=== PATIENT | male | born 1990 | race Caucasian/White ===

== ENCOUNTER 2016-12-15 08:47 | Emergency (ER) | payer OTHER ==
--- NOTE | 2016-12-15 10:37 | UC ---
Skin Complaint HPI - HPI Summary HPI Summary: large mole on his back that has been getting irritated from the harness we wears at work---has been bleeding for the past few days - History of Current Complaint Chief Complaint: [employer] Time Seen by Provider: 12/15/16 10:29 Stated Complaint: SKIN COMPLAINT Hx Obtained From: Patient Onset/Duration: Gradual Onset, Still Present Skin Exposure Onset/Duration: Worse Since: - past few weeks has been bleeding on /off --patient believes hehas had the mole for at least 10-15 years Timing: Constant Onset Severity: Moderate Current Severity: Moderate Pain Intensity: 4 Pain Scale Used: 0-10 Numeric Location: Discrete - mid right side of back Aggravating: Other - his work harness Alleviating: Nothing Associated Signs & Symptoms: Positive: Negative - Allergy/Home Medications Allergies/Adverse Reactions: Allergies Allergy/AdvReac Type Severity Reaction Status Date / Time No Known Allergies Allergy Verified 12/15/16 08:52 Home Medications: Home Medications NK [No Home Medications Reported] 12/15/16 [History Confirmed 12/15/16] Review of Systems Constitutional: Negative Skin: Other - Bleeding mole on back Eyes: Negative ENT: Negative Respiratory: Negative Cardiovascular: Negative Gastrointestinal: Negative Genitourinary: Negative Motor: Negative Neurovascular: Negative Musculoskeletal: Negative Neurological: Negative Psychological: Negative All Other Systems Reviewed And Are Negative: Yes PMH/Surg Hx/FS Hx/Imm Hx Previously Healthy: Yes - Surgical History Surgical History: None - Family History Known Family History: Positive: None Family History: no cardio vascular issues in family lineage - Social History Occupation: Employed Full-time Lives: With Family Alcohol Use: Occasionally Substance Use Type: None Smoking Status (MU): Never Smoked Tobacco Physical Exam Triage Information Reviewed: Yes Appearance: Well-Appearing, No Pain Distress, Well-Nourished Vital Signs: Initial Vital Signs Temp 98.2 F 12/15/16 08:50 Pulse 83 12/15/16 08:50 Resp 16 12/15/16 08:50 BP 155/80 12/15/16 08:50 Pulse Ox 100 12/15/16 08:50 Vital Signs Reviewed: Yes Eye Exam: Normal Eyes: Positive: Conjunctiva Clear ENT Exam: Normal ENT: Positive: Normal ENT inspection, Hearing grossly normal. Negative: Trismus , Muffled/hoarse voice Dental Exam: Normal Neck exam: Normal Neck: Positive: Supple, Nontender Respiratory Exam: Normal Respiratory: Positive: Chest non-tender, No respiratory distress, No accessory muscle use Cardiovascular Exam: Normal Cardiovascular: Positive: RRR, Pulses Normal, Brisk Capillary Refill Musculoskeletal Exam: Normal Musculoskeletal: Positive: Strength Intact, ROM Intact, No Edema Neurological Exam: Normal Neurological: Positive: Alert, Muscle Tone Normal Psychological Exam: Normal Skin Exam: Other Skin: Positive: Other - 6 mm diameter by 6 mm height pyrogenic granuolma vs cutaneous horn Course/Dx - Course Course Of Treatment: follow with dermatology 1010 am tomorrow, follow blood pressure with pcp - Differential Diagnoses - Skin Complaint Differential Diagnoses: Cellulitis, Impetigo - Diagnoses Provider Diagnoses: Pyrogenic Granuloma mid back, hypertension with dx Discharge - Discharge Plan Condition: Stable Disposition: HOME Patient Education Materials: DASH Eating Plan (ED), Hypertension (ED), Atypical Mole (ED) Forms: *Work Release Referrals: Isauro Mcnair MD [Medical Doctor] - 12/16/16 10:10 am No Primary Care Phys,NOPCP [Primary Care Provider] - Additional Instructions: Please arrive 15 minutes early with Insurance information and picture ID
[2016-12-15 10:45] VITALS: BP 151/88
== END 2016-12-15 10:52 | disposition home or self-care (01) ==
LOC: UCEAST 08:47
DX: L98.0 Pyogenic granuloma (principal); I10 Essential (primary) hypertension
CPT/HCPCS: 99202; G0463